=== PATIENT | male | born 1975 | race Two or more races ===

== ENCOUNTER 2016-12-14 21:38 | Emergency (ER) | payer MEDICAID ==
[~2016-12-14] VITALS: Ht 177.8 cm; Wt 84.0 kg
[~2016-12-14 21:38] MED LIST: NYST30OI6 TP; OMEP20 PO
[2016-12-14 22:37] VITALS: BP 128/80
== END 2016-12-14 22:38 | disposition home or self-care (01) ==
LOC: EMS 21:39
DX: K05.219 Aggressive periodontitis, localized, unspecified severity (principal); F15.90 Other stimulant use, unspecified, uncomplicated
CPT/HCPCS: 99283

== ENCOUNTER 2017-03-27 21:25 | Emergency (ER) | payer MEDICAID ==
[~2017-03-27] VITALS: Ht 177.8 cm; Wt 81.5 kg
[2017-03-27 21:53] LABS: BASOPHILS % (AUTO) 0.7 % (0.0-2.0); HEMATOCRIT 37.1 % (41-53); HEMOGLOBIN 12.3 g/dL (13.5-17.5); LYMPHOCYTES # (AUTO) 1.6 K/uL (1.0-4.8); LYMPHOCYTES % (AUTO) 26.8 % (22.0-44.0); MEAN CORPUSCULAR HEMOGLOBIN 29.7 pg (26.0-34.0); MEAN CORPUSCULAR HGB CONC 33.1 G/dL (31.0-37.0); MEAN CORPUSCULAR VOLUME 90 fL (80-100); MONOCYTES # (AUTO) 0.8 K/uL (0.1-1.0); MONOCYTES % (AUTO) 12.9 % (2.0-9.0); NEUTROPHILS # (AUTO) 3.2 K/uL (1.8-7.7); NEUTROPHILS % (AUTO) 53.6 % (40.0-70.0); PLATELET COUNT (AUTO) 234 K/uL (150-450); RED BLOOD CELL COUNT(AUTO) 4.15 MIL/uL (4.50-5.90); RED CELL DISTRIBUTION WIDTH 11.9 % (11.5-14.5); WHITE BLOOD COUNT (AUTO) 5.9 K/uL (4.5-11.0)
[2017-03-27 22:08] LABS: ADD UA MICROSCOPIC NO; APPEARANCE,URINE CLEAR (CLEAR); GLUCOSE, URINE (UA) NEGATIVE (NEGATIVE); KETONES,URINE TRACE mg/dL (NEGATIVE); LEUKOCYTE ESTERASE ,URINE NEGATIVE (NEGATIVE); OCCULT BLOOD,URINE NEGATIVE (NEGATIVE); PROTEIN,URINE NEGATIVE (NEGATIVE)
[2017-03-27 22:15] LABS: INR 1.2 (0.9-1.1); PROTHROMBIN TIME 12.9 SEC (9.4-11.6)
[2017-03-27 22:19] LABS: ANION GAP 5 mmol/L (8-16); CALCIUM, TOTAL 8.3 mg/dL (8.8-10.5); CARBON DIOXIDE 31 mmol/L (22-29); CHLORIDE 102 mmol/L (98-107); CREATININE 0.92 mg/dL (0.60-1.30); GLOMERULAR FILTR. RATE CALC > 60 mL/min (>60); SODIUM SERUM 138 mmol/L (136-145); UREA NITROGEN, BLOOD 8 mg/dL (7-18)
[2017-03-27 22:23] LABS: ALANINE AMINOTRANSFERASE 28 U/L (12-78); ALBUMIN 2.6 g/dL (3.4-5.0); ASPARTATE AMINOTRANSFERASE 22 U/L (15-37); BILIRUBIN,TOTAL 0.3 mg/dL (0.1-1.0)
[2017-03-27] MEDS ORDERED: ACETAMINOPHEN 325 MG TABLET PO ONE (23:30)
[2017-03-28 00:04] VITALS: BP 129/78
== END 2017-03-28 00:31 | disposition home or self-care (01) ==
LOC: EMS 21:31
DX: K21.9 Gastro-esophageal reflux disease without esophagitis (principal); B86 Scabies; F15.10 Other stimulant abuse, uncomplicated; F19.90 Other psychoactive substance use, unspecified, uncomplicated
CPT/HCPCS: 99284

== ENCOUNTER 2017-03-31 22:41 | Emergency (ER) | payer MEDICAID ==
[~2017-03-31] VITALS: Ht 177.8 cm; Wt 81.8 kg
[2017-03-31] MEDS ORDERED: [UNRECOGNIZED DRUG - REMARK] PO (22:53)
[2017-03-31] MEDS ORDERED: [UNRECOGNIZED DRUG - REMARK] TP (22:53)
[2017-04-01] MEDS ORDERED: PredniSONE 20 MG TABLET PO ONE (00:15)
[2017-04-01 01:30] VITALS: BP 144/80
== END 2017-04-01 01:35 | disposition home or self-care (01) ==
LOC: EMS 22:43
DX: R10.31 Right lower quadrant pain (principal); B86 Scabies; F19.90 Other psychoactive substance use, unspecified, uncomplicated
CPT/HCPCS: 74010; 99284; J7512

== ENCOUNTER 2018-05-01 11:44 | Emergency (ER) | payer MEDICAID ==
[~2018-05-01] VITALS: Ht 172.7 cm; Wt 81.5 kg
[~2018-05-01 11:44] MED LIST changes: -NYST30OI6 TP; -OMEP20 PO; +[UNRECOGNIZED DRUG - REMARK] PO; +[UNRECOGNIZED DRUG - REMARK] TP
[2018-05-01] MEDS ORDERED: HYDROGEN PEROXIDE 473 ML SOLUTION TP ONE (12:15)
[2018-05-01] MEDS ORDERED: PERTUSS(ACELL),DIPH,TET VAC/PF 0.5 ML VIAL IM ONE (12:15)
[2018-05-01] MEDS ORDERED: KETOROLAC TROMETHAMINE 60 MG/2 ML VIAL IM ONE (13:00)
[2018-05-01] MEDS ORDERED: HYDROGEN PEROXIDE 118 ML SOLUTION ONE (13:02)
[2018-05-01 13:31] VITALS: BP 122/70
== END 2018-05-01 13:37 | disposition home or self-care (01) ==
LOC: EMS 11:44
DX: S00.83XA Contusion of other part of head, initial encounter (principal); S20.219A Contusion of unspecified front wall of thorax, initial encounter; Y04.8XXA Assault by other bodily force, initial encounter; Y93.89 Activity, other specified; Y92.89 Other specified places as the place of occurrence of the external cause; Y99.8 Other external cause status; F15.90 Other stimulant use, unspecified, uncomplicated
CPT/HCPCS: 90471; 90715; 96372; 99284; J1885

== ENCOUNTER 2018-05-09 23:37 | Emergency (ER) | payer SELFPAY ==
[~2018-05-09] VITALS: Ht 177.8 cm; Wt 81.8 kg
[2018-05-10] MEDS ORDERED: AMOX TR/POT CLAV 875 MG/125 MG TABLET PO ONE (02:30)
[2018-05-10] MEDS ORDERED: IBUPROFEN 800 MG TABLET PO ONE (02:30)
[2018-05-10] MEDS ORDERED: ACETAMINOPHEN 500 MG TABLET PO ONE (02:30)
[2018-05-10 03:25] VITALS: BP 121/79
== END 2018-05-10 03:35 | disposition home or self-care (01) ==
LOC: EMS 23:38
DX: S02.5XXA Fracture of tooth (traumatic), initial encounter for closed fracture (principal); S00.11XA Contusion of right eyelid and periocular area, initial encounter; K04.7 Periapical abscess without sinus; K02.9 Dental caries, unspecified; F19.90 Other psychoactive substance use, unspecified, uncomplicated; X58.XXXA Exposure to other specified factors, initial encounter; Y93.89 Activity, other specified; Y92.89 Other specified places as the place of occurrence of the external cause; Y99.8 Other external cause status
CPT/HCPCS: 99284

== ENCOUNTER 2019-07-06 02:25 | Emergency (ER) | payer SELFPAY ==
[~2019-07-06] VITALS: Ht 177.8 cm; Wt 84.0 kg
[2019-07-06 03:03] VITALS: BP 124/63
[2019-07-06] MEDS ORDERED: PENICILLIN V POTASSIUM 500 MG TABLET PO ONE (03:15)
[2019-07-06] MEDS ORDERED: IBUPROFEN 600 MG TABLET PO ONE (03:15)
== END 2019-07-06 03:35 | disposition home or self-care (01) ==
LOC: EMS 02:27
DX: K05.10 Chronic gingivitis, plaque induced (principal); F15.10 Other stimulant abuse, uncomplicated

== ENCOUNTER 2020-06-24 09:55 | Emergency (ER) | payer MEDICAID ==
[~2020-06-24] VITALS: Ht 180.3 cm; Wt 75.0 kg
[2020-06-24 11:12] VITALS: BP 122/70
== END 2020-06-24 11:23 | disposition home or self-care (01) ==
LOC: EMS 09:55
DX: B35.6 Tinea cruris (principal); H60.91 Unspecified otitis externa, right ear; F15.10 Other stimulant abuse, uncomplicated

== ENCOUNTER 2021-04-06 05:30 | Emergency (ER) | payer MEDICAID ==
[~2021-04-06] VITALS: Ht 177.8 cm; Wt 79.5 kg
[2021-04-06] MEDS ORDERED: EMTR1TAB15 PO (05:41)
[2021-04-06] MEDS ORDERED: AMOX TR/POT CLAV 875 MG/125 MG TABLET PO ONE (07:15)
[2021-04-06] MEDS ORDERED: IBUPROFEN 600 MG TABLET PO ONE (07:15)
[2021-04-06 07:50] VITALS: BP 114/69
== END 2021-04-06 07:51 | disposition home or self-care (01) ==
LOC: EMS 05:30
DX: K02.9 Dental caries, unspecified (principal)
CPT/HCPCS: 99283; 99284

== ENCOUNTER 2022-04-07 03:19 | Emergency (ER) | payer MEDICAID ==
[~2022-04-07] VITALS: Ht 177.8 cm; Wt 79.5 kg
[~2022-04-07 03:19] MED LIST changes: +EMTR1TAB15 PO; -[UNRECOGNIZED DRUG - REMARK] PO; -[UNRECOGNIZED DRUG - REMARK] TP
[2022-04-07 03:21] VITALS: BP 114/81
[2022-04-07] MEDS ORDERED: OXYC10TA48 PO (03:25)
[2022-04-07] MEDS ORDERED: BICT1TAB PO (03:25)
[2022-04-07] MEDS ORDERED: PROC10TA61 PO (03:25)
[2022-04-07] MEDS ORDERED: AMOX1TAB16 PO (03:41)
[2022-04-07] MEDS ORDERED: OXYC-38 PO (03:41)
== END 2022-04-07 03:51 | disposition home or self-care (01) ==
LOC: EMS 03:19
DX: K04.7 Periapical abscess without sinus (principal); Z88.8 Allergy status to other drugs, medicaments and biological substances
CPT/HCPCS: 99283; Z7502

== ENCOUNTER 2022-04-15 03:00 | Emergency (ER) | payer MEDICAID ==
[~2022-04-15] VITALS: Ht 177.8 cm; Wt 77.7 kg
[~2022-04-15 03:00] MED LIST changes: +AMOX1TAB16 PO; +BICT1TAB PO; +OXYC10TA48 PO; +PROC10TA61 PO
[2022-04-15 03:56] VITALS: BP 120/62
[2022-04-15] MEDS ORDERED: AMOX1TAB16 PO (04:10)
[2022-04-15] MEDS ORDERED: AMPICILLIN SODIUM/SULBACTAM NA 1.5 GM/VIAL IM ONE (04:30)
== END 2022-04-15 05:30 | disposition home or self-care (01) ==
LOC: EMS 03:00
DX: K04.7 Periapical abscess without sinus (principal); C76.0 Malignant neoplasm of head, face and neck; Z98.890 Other specified postprocedural states; Z88.8 Allergy status to other drugs, medicaments and biological substances
CPT/HCPCS: 99283; 96372; J0295